=== PATIENT | male | born 1995 | race Caucasian/White ===

== ENCOUNTER 2017-02-17 21:41 | Emergency (ER) | payer BC ==
[~2017-02-17] VITALS: Ht 177.8 cm; Wt 83.5 kg
[2017-02-17 21:44] VITALS: BP 135/93; TEMP 98.5
[2017-02-17 22:34] VITALS: PULSE 60
== END 2017-02-17 22:34 | disposition home or self-care (01) ==
LOC: COL.ER 21:41
DX: S01.111A Laceration without foreign body of right eyelid and periocular area, initial encounter (principal); W51.XXXA Accidental striking against or bumped into by another person, initial encounter; Y93.67 Activity, basketball; Y92.89 Other specified places as the place of occurrence of the external cause

== ENCOUNTER 2017-02-25 19:11 | Emergency (ER) | payer BC ==
[2017-02-25 19:26] VITALS: BP 137/86; PULSE 46; TEMP 97.9
== END 2017-02-25 19:28 | disposition home or self-care (01) ==
LOC: COL.ER 19:11
DX: Z48.02 Encounter for removal of sutures (principal)